=== PATIENT | female | born 1960 | race African-American/Black ===

== ENCOUNTER 2016-08-28 14:50 | Emergency (ER) | payer MEDICARE, MEDICAID ==
[~2016-08-28] VITALS: Ht 162.6 cm; Wt 118.0 kg
[~2016-08-28 14:50] MED LIST: AMIT-188; ATIVAN; CELEXA; IOHEXOL-300 100 ML BOTTLE ONE; LEVO50TA8; OMEP40CA34; RESTORIL; SODIUM CHLORIDE 0.9% 10ML VIAL ONE; VIC
[2016-08-28] MEDS ORDERED: MORPHINE SULFATE 4 MG/ML CPJ (NOT FOR IM USE) IV ONE (15:15)
[2016-08-28] MEDS ORDERED: ONDANSETRON HCL 4MG/2ML VIAL IV ONE (15:15)
[2016-08-28 15:42] LABS: BASOPHILS % 0.9 % (0.0-2.0); CHLORIDE 98 mEq/L (98-107); DIFFERENTIAL COMMENT 0; EOSINOPHILS % 0.7 % (0.0-5.0); HEMATOCRIT. 38.8 % (36.0-48.0); HEMOGLOBIN. 12.6 g/dL (12.0-16.0); INDEX HEMOLYSI 1 (1-3); INDEX ICTERIC 1 (1-4); INDEX LIPEMIC 1 (1-3); LYMPHOCYTES % 26.2 % (20.0-50.0); MEAN CORPUSCULAR HGB CONC 32.5 g/dL (31.0-37.0); MEAN PLATELET VOLUME 9.5 fl (7.4-10.4); MONOCYTES % 3.8 % (2.0-8.0); NEUTROPHILS % 68.4 % (40.0-76.0); PLATELET 279 x1000/uL (130-400); RED BLOOD CELL COUNT 5.04 mill/uL (4.2-5.4); RED CELL DISTRIBUTION WIDTH 17.2 % (11.6-14.6); WHITE BLOOD COUNT 10.2 x1000/uL (4.5-11.0)
[2016-08-28 15:43] LABS: D-DIMER 0.6 mg/L FEU (<0.50); PROTHROMBIN TIME 10.9 sec
[2016-08-28 15:47] LABS: ALBUMIN 3.6 g/dL (3.4-5.0); ANION GAP 16; CALCIUM 12.4 mg/dL (8.5-10.1); CARBON DIOXIDE 27 mEq/L (21-32); LIPASE 119 IU/L (73-393); UREA NITROGEN BLOOD 7 mg/dL (7-21)
[2016-08-28 15:50] LABS: ALANINE AMINOTRANSFERASE 68 IU/L (13-61); eGFR > 60 mL/min (>60)
[2016-08-28 15:54] LABS: LACTIC ACID 3.1 mmol/L (0.4-2.0)
[2016-08-28] MEDS ORDERED: FAMOTIDINE 20MG/2ML VIAL IV ONE (18:45)
[2016-08-28] MEDS ORDERED: SIMETHICONE 80MG TABLET CHEW PO ONE (18:45)
[2016-08-28 18:57] LABS: CLARITY URINE CLEAR (CLEAR); COLOR URINE YELLOW (YELLOW); GLUCOSE URINE 1+ (NEGATIVE); KETONES URINE NEGATIVE (NEGATIVE); LEUKOCYTE ESTERASE URINE NEGATIVE (NEGATIVE); NITRITE URINE NEGATIVE (NEGATIVE); OCCULT BLOOD URINE NEGATIVE (NEGATIVE); PROTEIN URINE 2+ (NEGATIVE); SPECIFIC GRAVITY URINE 1.035 (1.005-1.030); UROBILINOGEN URINE 0.2 E.U./dL (0.2-1.0)
[2016-08-28 19:34] LABS: SQUAMOUS EPITHELIAL CELL URINE FEW /lpf (RARE/1+)
[2016-08-28 19:35] VITALS: BP 140/89
[2016-08-28 19:35] LABS: BACTERIA URINE 1+; CALCIUM OXALATE CRYSTALS URINE 1+ /lpf; RBC URINE 0-2 /hpf (0-2); WBC URINE 0-2 /hpf (0-2)
== END 2016-08-28 20:02 | disposition home or self-care (01) ==
LOC: ER 15:14
DX: K52.9 Noninfective gastroenteritis and colitis, unspecified (principal); R03.0 Elevated blood-pressure reading, without diagnosis of hypertension; K57.30 Diverticulosis of large intestine without perforation or abscess without bleeding; K76.0 Fatty (change of) liver, not elsewhere classified; R00.0 Tachycardia, unspecified; R19.7 Diarrhea, unspecified; M43.17 Spondylolisthesis, lumbosacral region; Z96.643 Presence of artificial hip joint, bilateral
CPT/HCPCS: 36415; 74177; 80053; 81001; 83605; 83690; 85025; 85379; 85610; 96374; 96375; 99285; A4216; J2270; J2405; J3490; Q9967

== ENCOUNTER 2018-11-02 08:12 | Emergency (ER) | payer MEDICARE, MEDICAID ==
[~2018-11-02] VITALS: Ht 162.6 cm; Wt 104.0 kg
[~2018-11-02 08:12] MED LIST changes: -IOHEXOL-300 100 ML BOTTLE ONE; -SODIUM CHLORIDE 0.9% 10ML VIAL ONE
[2018-11-02] MEDS ORDERED: MORPHINE SULFATE 4 MG/ML CPJ (NOT FOR IM USE) IV STA (10:01)
[2018-11-02] MEDS ORDERED: KETOROLAC 30MG/ML VIAL IV STA (10:01)
[2018-11-02] MEDS ORDERED: ONDANSETRON HCL 4MG/2ML INJ IV STA (10:01)
[2018-11-02 11:47] VITALS: BP 116/75
== END 2018-11-02 11:45 | disposition home or self-care (01) ==
LOC: ER 08:12
DX: M54.40 Lumbago with sciatica, unspecified side (principal); E11.9 Type 2 diabetes mellitus without complications; M32.9 Systemic lupus erythematosus, unspecified; M19.90 Unspecified osteoarthritis, unspecified site; Z96.643 Presence of artificial hip joint, bilateral; Z88.0 Allergy status to penicillin
CPT/HCPCS: 93970; 96374; 96375; 99284; J1885; J2270; J2405

== ENCOUNTER 2019-01-20 23:28 | Emergency (ER) | payer MEDICARE, MEDICAID ==
[~2019-01-20] VITALS: Ht 162.6 cm; Wt 109.0 kg
[2019-01-21] MEDS ORDERED: MORPHINE SULFATE 4 MG/ML CPJ (NOT FOR IM USE) IV STA (00:29)
[2019-01-21] MEDS ORDERED: ONDANSETRON HCL 4MG/2ML INJ IV STA (00:29)
[2019-01-21] MEDS ORDERED: KETOROLAC 60MG/2ML VIAL IM ONE (04:45)
[2019-01-21 04:51] VITALS: BP 115/52
== END 2019-01-21 05:04 | disposition home or self-care (01) ==
LOC: ER 23:28
DX: M25.551 Pain in right hip (principal); J44.9 Chronic obstructive pulmonary disease, unspecified; E11.9 Type 2 diabetes mellitus without complications; I10 Essential (primary) hypertension; Z87.39 Personal history of other diseases of the musculoskeletal system and connective tissue; Z79.899 Other long term (current) drug therapy; Z96.641 Presence of right artificial hip joint; Z88.0 Allergy status to penicillin
CPT/HCPCS: 73502; 96372; 96374; 96375; 99283; J1885; J2270; J2405